=== PATIENT | female | born 1990 | race Caucasian/White ===

== ENCOUNTER 2016-09-10 10:51 | Day surgery (SDC) | payer BC ==
[~2016-09-10] VITALS: Ht 162.6 cm; Wt 61.6 kg
[2016-09-10] MEDS ORDERED: SULFASALAZINE (11:48)
[2016-09-10 11:51] VITALS: Ht 162.6 cm; Wt 61.6 kg
[2016-09-10 15:00] VITALS: BP 105/73; PULSE 73; RESP 18
[2016-09-10] MEDS ORDERED: PROPOFOL 20 ML ONE ×3 (15:06→16:08)
[2016-09-10 16:38] VITALS: BP 107/62; RESP 20
--- NOTE | 2016-09-11 06:51 | GILP ---
DATE OF PROCEDURE: PROCEDURES: 1. Colonoscopy with biopsies. 2. Enteroscopy with biopsies. SURGEON: Coleman Johnson MD BRIEF HISTORY AND INDICATIONS: The patient is being evaluated for history of universal ulcerative c olitis with recurrence of symptoms in the form of diarrhea. PREMEDICATION: Monitored anesthesia care by anesthesiologist. INSTRUMENT USED: Olympus colonoscope. PREPARATION: Adequate. TECHNIQUE: After informed consent, with the patient/relatives understanding the procedure, its indic ations potential risks and complications, including but not limited to: allergic reaction, bleeding, perforation, infection, missed lesions and after all pertinent questions were answered to the patie nt's satisfaction, the patient/relatives signed the witnessed informed consent. Following this, premedication was administered slowly IV push by under careful cardiovascular and re spiratory monitoring with pulse oximetry, automatic blood pressure and quality assurance monitor final. Once the sedativ e effect was achieved, the patient was placed in the left lateral decubitus position, digital rectal examination was performed. The colonoscope was then introduced and advanced under visual control th roughout all segments of the colon including: the rectum, sigmoid, descending colon, splenic flexure , transverse colon, hepatic flexure, ascending colon and finally reaching the cecum which was clearl y identified by transillumination, finger indentation and the ileocecal valve. Careful examination o f the mucosa of the lower gastrointestinal tract both on insertion as well as withdrawal of the inst rument disclosed the following findings: Rectal Examination: No evidence of perirectal disease, no masses. Colonic Mucosa: The colonic mucosa shows erythema, edema, and aphthous ulceration throughout the col on of a mild to moderate degree. The ileocecal valve was clearly identified, and the terminal ileum was entered and examined for appr oximately 15 cm. The terminal ileum appears unremarkable. Random biopsies were obtained. The colo n was then biopsied in the different segments, i.e., the ascending, transverse, descending, sigmoid, and finally rectal area. No additional abnormalities are noted. The instrument was then withdrawn, the patient tolerated the procedure well and was transferred out of the [facility]oscopy Suite awake and in good condition to continue recovery under observation. IMPRESSION: 1. Moderately active universal ulcerative colitis. Biopsies obtained. 2. Normal ileum. Biopsies obtained. PLAN: Add budesonide 9 mg daily. Review pathology as soon as available. Further recommendation wi ll depend on the patient's clinical course. Dictated By: COLEMAN JOHNSON MS/ALBAN Conf#: [id number] DID#: [id number]
== END 2016-09-10 17:00 | disposition home or self-care (01) ==
LOC: GIL 10:51
PROVIDERS: ATTEND Internal Medicine Gastroenterology
DX: K51.90 Ulcerative colitis, unspecified, without complications (principal)
CPT/HCPCS: 45378; 84703; 88305; Z7610